=== PATIENT | female | born 1960 | race Hispanic/Latino ===

== ENCOUNTER 2016-06-23 19:54 | Inpatient (IN) | payer MEDICARE ==
[2016-06-23 23:31] LABS: Bilirubin,Urine NEG (Negative); Blood,Urine MOD (Negative); Ketones,Urine NEG (Negative); Leukocyte Esterase,Urine SM (Negative); Mucus,Urine FEW /HPF; Nitrite,Urine NEG (Negative)
[2016-06-23] MEDS ORDERED: MAGNESIUM SULFATE 2GM/50ML 50 ML IV ONE (23:34)
[2016-06-23] MEDS ORDERED: NACL 0.9% 1000 ML 1,000 ML IV ONE (23:34)
[2016-06-23] MEDS ORDERED: PROVENTIL IH ONE (23:34)
[2016-06-23] MEDS ORDERED: ATROVENT IH ONE (23:34)
--- NOTE | 2016-06-23 23:36 | Emergency Department Report ---
ED General Adult HPI - General Chief complaint: Chest Pain Stated complaint: CHEST PAIN Time Seen by Provider: 06/23/16 23:24 Source: patient, EMS, RN notes reviewed Mode of arrival: Stretcher Limitations: Other (she has history of stroke, she is a poor historian, and has a component of expressive aphasia) - History of Present Illness Initial comments: This is a 55-year-old female, previously unknown to me. Has a past medical history of COPD, and is on chronic home oxygen therapy. Also has a history of heart disease, thinks that she has a stent, her outsole molder is Dr. Wade. She is brought to the hospital by EMS for chest pain, cough, weakness. Patient complains of cough, chest pain, weakness for the past 2 days. Chest pain is central. It does not radiate to the back, arms and neck. Positive sweating/diaphoresis. Positive shortness of breath. There is no leg pain. There is no recent travel greater than 4 hours, no recent hospital admissions. Patient reports nausea and vomiting. No significant abdominal pain. Also has mild suprapubic discomfort, and urinary frequency and dysuria. Symptoms have been constant for the past few days. They're getting worse. -: Gradual, days(s) Location: chest Severity scale (0 -10): 5 Quality: aching Consistency: constant Improves with: rest Worsens with: movement Associated Symptoms: chest pain, cough, diaphoresis, fever/chills, loss of appetite, shortness of breath, weakness - Related Data Home Medications Medication Instructions Recorded Confirmed Last Taken ALPRAZolam [Xanax] 0.25 mg PO BID PRN 12/26/13 12/26/13 12/26/13 08:00 Aspirin [Baby Aspirin] 81 mg PO QDAY 12/26/13 12/26/13 12/26/13 08:00 Lisinopril [Zestril] 5 mg PO QDAY 12/26/13 12/26/13 12/26/13 08:00 Simvastatin 10 mg PO QHS 12/26/13 12/26/13 12/26/13 08:00 Previous Rx's Medication Instructions Recorded Last Taken Type ALBUTEROL Inhaler [ProAir HFA 2 puff IH QID PRN #1 inhalation 12/26/13 Unknown Rx Inhaler] HYDROcodone/APAP 5-325 [Morrow 1 each PO Q6HR PRN #20 tablet 12/26/13 Unknown Rx 5/325] predniSONE [Deltasone] 50 mg PO QDAY #5 tab 12/26/13 Unknown Rx Allergies Allergy/AdvReac Type Severity Reaction Status Date / Time carisoprodol [From Soma] Allergy Unknown Verified 12/26/13 14:41 morphine Allergy Anaphylaxis Verified 12/26/13 14:40 Quinolones Allergy Unknown Verified 12/26/13 14:41 Sulfa (Sulfonamide Allergy Unknown Verified 12/26/13 14:42 Antibiotics) ED Review of Systems ROS: Stated complaint: CHEST PAIN Other details as noted in HPI Constitutional: malaise, weakness Eyes: denies: vision change ENT: congestion Respiratory: cough, shortness of breath, SOB with exertion, SOB at rest Cardiovascular: chest pain Gastrointestinal: nausea Genitourinary: dysuria Musculoskeletal: back pain Skin: denies: lesions Neurological: weakness Psychiatric: anxiety ED Past Medical Hx - Past Medical History Previous Medical History?: Yes Hx Hypertension: Yes Hx CVA: Yes (residual right sided weakness) Hx COPD: Yes 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 4) - Surgical History Past Surgical History?: Yes Hx Open Heart Surgery: Yes Hx Cholecystectomy: Yes Hx Appendectomy: Yes Additional Surgical History: Colostomy and reversal of colostomy - Social History Smoking Status: Current Every Day Smoker Substance Use Type: None - Medications Home Medications: Home Medications Medication Instructions Recorded Confirmed Last Taken Type ALBUTEROL Inhaler [ProAir HFA 2 puff IH QID PRN #1 inhalation 12/26/13 Unknown Rx Inhaler] ALPRAZolam [Xanax] 0.25 mg PO BID PRN 12/26/13 12/26/13 12/26/13 08:00 History Aspirin [Baby Aspirin] 81 mg PO QDAY 12/26/13 12/26/13 12/26/13 08:00 History HYDROcodone/APAP 5-325 [Morrow 1 each PO Q6HR PRN #20 tablet 12/26/13 Unknown Rx 5/325] Lisinopril [Zestril] 5 mg PO QDAY 12/26/13 12/26/13 12/26/13 08:00 History Simvastatin 10 mg PO QHS 12/26/13 12/26/13 12/26/13 08:00 History predniSONE [Deltasone] 50 mg PO QDAY #5 tab 12/26/13 Unknown Rx ED Physical Exam - General Limitations: Physical Limitation General appearance: alert, in no apparent distress - Head Head exam: Present: atraumatic, normocephalic - Eye Eye exam: Present: normal appearance, EOMI. Absent: nystagmus - ENT ENT exam: Present: normal exam - Neck Neck exam: Present: normal inspection, full ROM. Absent: tenderness, meningismus - Respiratory Respiratory exam: Present: respiratory distress, wheezes, rhonchi - Cardiovascular Cardiovascular Exam: Present: normal rhythm, tachycardia, normal heart sounds. Absent: systolic murmur, diastolic murmur, rubs, gallop - GI/Abdominal GI/Abdominal exam: Present: soft, normal bowel sounds. Absent: distended, tenderness, guarding, rebound, rigid, pulsatile mass - Extremities Exam Extremities exam: Present: normal inspection, full ROM, normal capillary refill. Absent: tenderness, pedal edema, joint swelling, calf tenderness - Back Exam Back exam: Present: normal inspection, full ROM. Absent: tenderness, CVA tenderness (R), CVA tenderness (L), muscle spasm, paraspinal tenderness, vertebral tenderness - Neurological Exam Neurological exam: Present: alert, oriented X3, other (there is no facial droop. The tongue is midline. Extraocular movements are intact. 5/5 strength in 4 extremities. Sensation is intact to light touch in for 4 extremities) - Psychiatric Psychiatric exam: Present: normal affect, normal mood - Skin Skin exam: Present: warm, dry, intact, normal color. Absent: rash ED Course Vital Signs 06/23/16 06/23/16 06/23/16 22:34 22:41 22:45 Temperature 98.9 F Pulse Rate 113 H 113 H 112 H Pulse Rate [ Posterior] Respiratory 22 19 34 H Rate Respiratory Rate [Posterior ] Blood Pressure 116/62 114/58 O2 Sat by Pulse 95 96 94 Oximetry 06/23/16 06/23/16 06/23/16 23:00 23:15 23:30 Temperature Pulse Rate 114 H 114 H 115 H Pulse Rate [ Posterior] Respiratory 35 H 23 31 H Rate Respiratory Rate [Posterior ] Blood Pressure 124/61 124/61 129/58 O2 Sat by Pulse 95 95 Oximetry 06/23/16 06/24/16 06/24/16 23:45 00:01 00:02 Temperature Pulse Rate 113 H 113 H Pulse Rate [ 111 H Posterior] Respiratory 21 35 H Rate Respiratory 25 H Rate [Posterior ] Blood Pressure 129/58 129/58 O2 Sat by Pulse 96 95 Oximetry 06/24/16 06/24/16 06/24/16 00:15 00:31 00:45 Temperature Pulse Rate 118 H 104 H 105 H Pulse Rate [ Posterior] Respiratory 29 H 29 H 12 Rate Respiratory Rate [Posterior ] Blood Pressure 129/58 129/58 129/58 O2 Sat by Pulse 98 94 96 Oximetry 06/24/16 06/24/16 06/24/16 01:00 01:01 01:15 Temperature Pulse Rate 126 H 64 Pulse Rate [ 120 H Posterior] Respiratory 39 H 30 H Rate Respiratory 25 H Rate [Posterior ] Blood Pressure 129/58 129/58 O2 Sat by Pulse 95 96 Oximetry 06/24/16 06/24/16 06/24/16 01:31 01:45 02:01 Temperature Pulse Rate 121 H 118 H 117 H Pulse Rate [ Posterior] Respiratory 35 H 18 18 Rate Respiratory Rate [Posterior ] Blood Pressure 129/58 129/58 129/58 O2 Sat by Pulse 94 95 95 Oximetry 06/24/16 06/24/16 06/24/16 02:15 02:30 02:45 Temperature Pulse Rate 111 H 110 H 110 H Pulse Rate [ Posterior] Respiratory 36 H 32 H 36 H Rate Respiratory Rate [Posterior ] Blood Pressure 104/46 94/45 102/43 O2 Sat by Pulse 93 94 Oximetry 06/24/16 03:00 Temperature Pulse Rate 109 H Pulse Rate [ Posterior] Respiratory 31 H Rate Respiratory Rate [Posterior ] Blood Pressure 102/37 O2 Sat by Pulse 96 Oximetry - Reevaluation(s) Reevaluation #1: 06/24/16 00:20 Differential diagnosis: COPD exacerbation, bronchitis, pneumonia, acute coronary syndrome assessment and plan: 55-year-old female with cough, wheezing, chest pain, diaphoresis, nausea, shortness of breath, generalized weakness. Chest x-ray suggests impressive pneumonia. She is tachycardic with leukocytosis. I think acute coronary syndrome is less likely, a significant pulmonary findings on her chest x-ray. There are no pulmonary embolus or DVT risk factors, she is low risk by well's criteria. Given her numerous medical comorbidities, severe work of breathing, tachycardia, leukocytosis, I do not believe the patient is suitable for outpatient management for her probable community-acquired pneumonia. She will be loaded with 2 L of IV fluid, blood cultures will be ordered, ceftriaxone, azithromycin, albuterol, Atrovent, steroids, magnesium are ordered. Case is discussed with the Hospital physician, Dr. Austin, who accepts the patient to his service. ED Medical Decision Making - Lab Data Result diagrams: 06/23/16 23:10 06/23/16 23:10 Vital Signs 06/23/16 06/24/16 22:41 00:02 Temperature 98.9 F Pulse Rate 113 H Pulse Rate [ 111 H Posterior] Respiratory 19 Rate Respiratory 25 H Rate [Posterior ] Blood Pressure 116/62 O2 Sat by Pulse 96 Oximetry Lab Results 06/23/16 06/23/16 06/23/16 Range/Units 23:10 23:10 23:10 WBC 30.7 H (4.5-11.0) K/mm3 RBC 5.29 H (3.65-5.03) M/mm3 Hgb 15.8 H (10.1-14.3) gm/dl Hct 49.9 H (30.3-42.9) % MCV 94 (79-97) fl MCH 30 (28-32) pg MCHC 32 (30-34) % RDW 14.8 (13.2-15.2) % Plt Count 230 (140-440) K/mm3 Sodium 131 L (137-145) mmol/L Potassium 3.7 (3.6-5.0) mmol/L Chloride 89.0 L (98-107) mmol/L Carbon Dioxide 26 (22-30) mmol/L Anion Gap 20 mmol/L BUN 7 (7-17) mg/dL Creatinine 0.9 (0.7-1.2) mg/dL Estimated GFR > 60 ml/min BUN/Creatinine Ratio 7.77 % Glucose 106 H (65-100) mg/dL Calcium 8.7 (8.4-10.2) mg/dL Troponin T < 0.010 (0.00-0.029) ng/mL NT-Pro-B Natriuret Pep 262.6 (0-900) pg/mL Urine Color (Yellow) Urine Turbidity (Clear) Urine pH (5.0-7.0) Ur Specific [place] (1.003-1.030) Urine Protein (Negative) mg/dL Urine Glucose (UA) (Negative) mg/dL Urine Ketones (Negative) mg/dL Urine Blood (Negative) Urine Nitrite (Negative) Urine Bilirubin (Negative) Urine Urobilinogen (<2.0) mg/dL Ur Leukocyte Esterase (Negative) Urine WBC (Auto) (0.0-6.0) /HPF Urine RBC (Auto) (0.0-6.0) /HPF U Epithel Cells (Auto) (0-13.0) /HPF Ur Transition Epith Cell /HPF Hyaline Casts /LPF Urine Mucus /HPF 06/23/16 Range/Units Unknown WBC (4.5-11.0) K/mm3 RBC (3.65-5.03) M/mm3 Hgb (10.1-14.3) gm/dl Hct (30.3-42.9) % MCV (79-97) fl MCH (28-32) pg MCHC (30-34) % RDW (13.2-15.2) % Plt Count (140-440) K/mm3 Sodium (137-145) mmol/L Potassium (3.6-5.0) mmol/L Chloride (98-107) mmol/L Carbon Dioxide (22-30) mmol/L Anion Gap mmol/L BUN (7-17) mg/dL Creatinine (0.7-1.2) mg/dL Estimated GFR ml/min BUN/Creatinine Ratio % Glucose (65-100) mg/dL Calcium (8.4-10.2) mg/dL Troponin T (0.00-0.029) ng/mL NT-Pro-B Natriuret Pep (0-900) pg/mL Urine Color No (Yellow) Urine Turbidity Slightly-cloudy (Clear) Urine pH 6.0 (5.0-7.0) Ur Specific [place] 1.021 (1.003-1.030) Urine Protein 30 mg/dl (Negative) mg/dL Urine Glucose (UA) Neg (Negative) mg/dL Urine Ketones Neg (Negative) mg/dL Urine Blood Mod (Negative) Urine Nitrite Neg (Negative) Urine Bilirubin Neg (Negative) Urine Urobilinogen 4.0 (<2.0) mg/dL Ur Leukocyte Esterase Sm (Negative) Urine WBC (Auto) 39.0 H (0.0-6.0) /HPF Urine RBC (Auto) 28.0 (0.0-6.0) /HPF U Epithel Cells (Auto) 25.0 H (0-13.0) /HPF Ur Transition Epith Cell 4 /HPF Hyaline Casts 1 /LPF Urine Mucus Few /HPF - EKG Data 06/24/16 00:23 Sinus tachycardia, 119 bpm, QTC 430 ms, abnormal EKG, not morphologically consistent with STEMI. - Radiology Data Radiology results: image reviewed interpreted by me: Portable chest x-ray demonstrates a median sternotomy, right lower lobe/right middle lobe infiltrate, COPD. Critical care attestation.: If time is entered above; I have spent that time in minutes in the direct care of this critically ill patient, excluding procedure time. ED Disposition Clinical Impression: Pneumonia Qualifiers: Pneumonia type: due to unspecified organism Laterality: right Lung location: lower lobe of lung Qualified Code(s): J18.9 - Pneumonia, unspecified organism Disposition: OP ADMITTED IP TO THIS HOSP Is pt being admited?: Yes Does the pt Need Aspirin: No Condition: Fair
[2016-06-23 23:44] LABS: Hematocrit 49.9 % (30.3-42.9); Hemoglobin 15.8 gm/dl (10.1-14.3); Mean Corpuscular HGB Conc 32 % (30-34); Mean Corpuscular Hemoglobin 30 pg (28-32); Mean Corpuscular Volume 94 fl (79-97); Platelet Count 230 K/mm3 (140-440); Red Blood Count 5.29 M/mm3 (3.65-5.03); Red Cell Distribution Width 14.8 % (13.2-15.2)
[2016-06-23 23:45] LABS: White Blood Count 30.7 K/mm3 (4.5-11.0)
[2016-06-23 23:58] LABS: Anion Gap 20 mmol/L; BUN/Creatinine Ratio 7.77; Blood Urea Nitrogen 7 mg/dL (7-17); Calcium 8.7 mg/dL (8.4-10.2); Carbon Dioxide 26 mmol/L (22-30); Glucose 106 mg/dL (65-100); Potassium 3.7 mmol/L (3.6-5.0); Sodium 131 mmol/L (137-145)
[2016-06-24] MEDS ORDERED: ROCEPHIN/NS 1 GM/50 ML 50 ML IV ONE (00:18)
[2016-06-24] MEDS ORDERED: ZITHROMAX 500 MG in NACL 0.9% 250ML 250 ML IV ONE (00:18)
[2016-06-24] MEDS ORDERED: BABY ASPIRIN PO ONE (00:26)
[2016-06-24 00:44] LABS: INR 0.97 (0.87-1.13)
[2016-06-24] MEDS ORDERED: NACL 0.9% 1000 ML IV ONE (01:00)
--- NOTE | 2016-06-24 01:21 | Admit Criteria Form ---
Admission Criteria Documentation: PNEUMONIA, COMMUNITY ACQUIRED Clinical Indications for Admission to Inpatient Care ( Place 'X' for any and all applicable criteria): Admission is indicated for ANY ONE of the following (1)(2)(3): [ ]I. Hypoxemia indicated by ANY ONE of the following: [ ]a) Oxygen saturation less than 90% while breathing room air [ ]b) PO2 less than 60 mm Hg (8.0 kPa) while breathing room air [ ]c) Chronic lung disease with significant deterioration from baseline oxygenation [ ]II. Appropriate diagnostic testing and treatment unavailable in outpatient or recovery facility (eg,testing or infection control measures unavailable(10) [ ]III. Moderate-risk or high-risk category patients (Pneumonia Severity Index (PSI) class IV or V, or CURB-65 score of 3 or greater). [ ]IV. Outpatient treatment failure as indicated by ANY ONE of the following(9) : [ ]a) Failure to respond to antibiotic (eg, resistant organism) [ ]b) Clinically significant adverse effects from medication (eg, vomiting) [ ]c) Complications of pneumonia (eg, empyema, bacteremia) [ ]d) Significant worsening of comorbid cond necessitating inpatient care (eg, chronic heart failure) [ ]V. Intermediate-risk category patients (eg, PSI class III or CURB-65 score 2) who do not improve with initial therapy and observation. [ ]. Immunocompromised patients (eg, AIDS, chronic steroid use) at moderate or high risk based on clinical evaluation. [ ]VII. Complicated pleural effusions (eg, exudative, loculated) [ ]VIII.Hemodynamic instability [ ] IX. Altered mental status that is severe or persistent. [ ]X. Dehydration that is severe or persistent. [ ]XI. Bacteremia [X ]XII. Respiratory finding (eg. tachypnea) that do not respond to outpatient or observation care treatment Extended stay beyond goal length of stay may be needed for (20) [ ]a) Unclear diagnosis [ ]b) Pleural disease [ ]c) Severe pneumonia or treatment failure (25 [ ]d) Respiratory failure (anticipate invasive or noninvasive ventilatory support) [ ]e) Abnormal serum electrolytes (serum Na concentration less than 135 mEq/L (mmol/L) (32)(33) [ ]f) Clinically significant comorbid illness (eg, heart failure, atrial fibrillation with rapid heart rate, alcohol withdrawal, renal insufficiency)(34)(35) [ ]g) Comorbid acute exacerbation of COPD(36) [ ]h) Concomitant diagnosis of malignancy that may be associated with malnutrition, immunologic impairment, or bronchial obstruction. [ ]i) Concomitant altered mental status [ ]j) Culture-identified Gram-negative or antibiotic-resistant organism (eg, Pseudomonas, methicillin-resistant Staphylococcus aureus)(30) [ ]k) Healthcare-associated pneumonia The original [employer] content created by [employer] has been revised. The portions of the content which have been revised are identified through the use of italic text or in bold, and [facility] has neither reviewed nor approved the modified material. All other unmodified content is copyright [employer]. Please see references footnoted in the original [email or web address] edition 2016 Admission Criteria Met: Yes
--- NOTE | 2016-06-24 01:51 | History and Physical Report ---
History of Present Illness History of present illness: 55 YO Female with HTN, COPD, History of TB 50 years ago, Nicotine Dependence, Chronic Respiratory Failure on Home Oxygen presents to ED for evaluation. Pt states that she has experienced coughing, weakness followed by pain in her chest for the past 2 days. Pt states that chest pain is precipitated by her coughing spells. Pt denies fever, chills, palpitations, NVD, recent ill contacts , unintentional weight loss, night sweats, or skin rashes. Past History Past Medical History: COPD, hypertension Past Surgical History: appendectomy, cholecystectomy, bowel surgery, Other ( cardiac surgery) Social history: , smoking Family history: hypertension Medications and Allergies Allergies Allergy/AdvReac Type Severity Reaction Status Date / Time carisoprodol [From Soma] Allergy Unknown Verified 12/26/13 14:41 morphine Allergy Anaphylaxis Verified 12/26/13 14:40 Quinolones Allergy Unknown Verified 12/26/13 14:41 Sulfa (Sulfonamide Allergy Unknown Verified 12/26/13 14:42 Antibiotics) Home Medications Medication Instructions Recorded Confirmed Last Taken Type ALBUTEROL Inhaler [ProAir HFA 2 puff IH QID PRN #1 inhalation 12/26/13 06/24/16 Unknown Rx Inhaler] ALPRAZolam [Xanax] 0.25 mg PO BID PRN 12/26/13 06/24/16 12/26/13 08:00 History Aspirin [Baby Aspirin] 81 mg PO QDAY 12/26/13 06/24/16 12/26/13 08:00 History Lisinopril [Zestril] 5 mg PO QDAY 12/26/13 06/24/16 12/26/13 08:00 History Simvastatin 5 mg PO QHS 12/26/13 06/24/16 12/26/13 08:00 History Review of Systems Constitutional: weakness Exam - Constitutional Vitals: Temp Pulse Resp BP Pulse Ox 98.9 F 111 H 25 H 116/62 96 06/23/16 22:41 06/24/16 00:02 06/24/16 00:02 06/23/16 22:41 06/23/16 22:41 General appearance: Present: mild distress - EENT Eyes: Present: PERRL ENT: hearing intact, clear oral mucosa - Neck Neck: Present: supple, normal ROM - Respiratory Respiratory effort: normal Respiratory: bilateral: diminished - Cardiovascular Heart Sounds: Present: S1 & S2. Absent: rub, click - Extremities Extremities: pulses symmetrical, No edema Peripheral Pulses: within normal limits - Abdominal General gastrointestinal: Present: soft, non-tender, non-distended, normal bowel sounds Female genitourinary: Present: normal - Integumentary Integumentary: Present: clear, warm, dry - Musculoskeletal Musculoskeletal: gait normal, strength equal bilaterally - Psychiatric Psychiatric: appropriate mood/affect, intact judgment & insight - Neurologic Neurologic: CNII-XII intact, moves all extremities Results - Labs CBC & Chem 7: 06/23/16 23:10 06/23/16 23:10 Labs: Abnormal lab results 06/23/16 06/23/16 06/23/16 Range/Units 23:10 23:10 Unknown WBC 30.7 H (4.5-11.0) K/mm3 RBC 5.29 H (3.65-5.03) M/mm3 Hgb 15.8 H (10.1-14.3) gm/dl Hct 49.9 H (30.3-42.9) % Sodium 131 L (137-145) mmol/L Chloride 89.0 L (98-107) mmol/L Glucose 106 H (65-100) mg/dL Urine WBC (Auto) 39.0 H (0.0-6.0) /HPF U Epithel Cells (Auto) 25.0 H (0-13.0) /HPF Assessment and Plan - Patient Problems (1) Pneumonia Current Visit: Yes Status: Acute Qualifiers: Pneumonia type: due to unspecified organism Laterality: right Lung location: lower lobe of lung Qualified Code(s): J18.9 - Pneumonia, unspecified organism Plan to address problem: Pneumonia Protocol: IV abx, supplemental oxygen, nebs, supportive care, blood cultures (2) Sepsis Current Visit: Yes Status: Acute Plan to address problem: Sepsis protocol: IV abx, ivf, supportive care. (3) COPD (chronic obstructive pulmonary disease) Current Visit: Yes Status: Acute Plan to address problem: treat sepsis, continue abx, supportive care, pulmonary toilet, (4) HTN (hypertension) Current Visit: Yes Status: Acute Plan to address problem: monitor bp q shift, continue current therapy (5) Chronic respiratory failure Current Visit: Yes Status: Acute Plan to address problem: treat sepsis, continue abx, supplemental oxygen, nebs, pulmonary toilet. (6) DVT prophylaxis Current Visit: Yes Status: Acute
[2016-06-24] MEDS ORDERED: TYLENOL PO PRN (01:52)
[2016-06-24] MEDS ORDERED: PROAIR IH PRN (01:54)
[2016-06-24 05:24] LABS: Anisocytosis 1+; Blastocytes % (Manual) 0 %; Diff Status Complete; Eosinophils % (Manual) 0 % (0.0-4.3)
[2016-06-24] MEDS: ZOSYN/NS 4.5GM/100ML 100 ML IV SCH ×2 (06:39→12:20)
--- NOTE | 2016-06-24 07:59 | XRay Report ---
Portable chest: There is a pulmonary consolidation in the right middle lobe. The overall interstitial pattern throughout both lungs is coarse. There is a prosthetic aortic valve. Compared to prior examination in December 2013 is been no change in the overall pulmonary pattern however the consolidation is new. Impression: 1. Right middle lobe pneumonia. 2. Chronic lung and cardiac changes.
[2016-06-24] MEDS: XANAX PO PRN ×2 (08:35→21:15)
[2016-06-24] MEDS: PROVENTIL IH PRN (08:51)
[2016-06-24] MEDS: NACL 0.45% 1000 ML 1,000 ML IV SCH ×2 (09:14→22:35)
[2016-06-24] MEDS ORDERED: LEVAQUIN 750MG/150ML 150 ML IV SCH (10:00)
[2016-06-24] MEDS: DELTASONE PO SCH (10:58)
[2016-06-24] MEDS: BABY ASPIRIN PO SCH (10:58)
[2016-06-24] MEDS: ZESTRIL PO SCH (10:59)
[2016-06-24] MEDS: LASIX PO SCH (12:20)
--- NOTE | 2016-06-24 19:12 | Event Note ---
Date: 06/24/16 Patient seen and examined in the ER, leukocytosis now, continue current therapy , cultures with no growth.
[2016-06-24] MEDS: ZOCOR PO SCH (21:16)
[2016-06-24] MEDS: NORCO 5/325 PO PRN (21:20)
[2016-06-25] MEDS: ZOSYN/NS 4.5GM/100ML 100 ML IV SCH ×6 (00:35→23:55)
[2016-06-25] MEDS: NACL 0.45% 1000 ML 1,000 ML IV SCH ×2 (08:57→20:26)
[2016-06-25 08:58] LABS: Hematocrit 39.6 % (30.3-42.9); Hemoglobin 12.9 gm/dl (10.1-14.3); Mean Corpuscular HGB Conc 33 % (30-34); Mean Corpuscular Hemoglobin 30 pg (28-32); Mean Corpuscular Volume 93 fl (79-97); Platelet Count 326 K/mm3 (140-440); Red Blood Count 4.28 M/mm3 (3.65-5.03); Red Cell Distribution Width 14.4 % (13.2-15.2)
[2016-06-25 09:12] LABS: Anion Gap 18 mmol/L; Blood Urea Nitrogen 10 mg/dL (7-17); Carbon Dioxide 24 mmol/L (22-30); Chloride 100.1 mmol/L (98-107); Glucose 118 mg/dL (65-100); Potassium 3.7 mmol/L (3.6-5.0); Sodium 138 mmol/L (137-145)
[2016-06-25 09:14] LABS: White Blood Count 23.2 K/mm3 (4.5-11.0)
[2016-06-25 09:44] LABS: Anisocytosis 1+; Basophils % (Manual) 0 % (0.0-1.8); Blastocytes % (Manual) 0 %; Eosinophils % (Manual) 0 % (0.0-4.3); Poikilocytosis 1+
[2016-06-25 09:45] LABS: Burr Cells Few; Diff Status Complete; Large Platelets Few
[2016-06-25] MEDS: SPIRIVA IH SCH (10:14)
[2016-06-25] MEDS: PROVENTIL IH PRN ×2 (10:21→14:48)
[2016-06-25] MEDS: LASIX PO SCH (10:25)
[2016-06-25] MEDS: BABY ASPIRIN PO SCH (10:25)
[2016-06-25] MEDS: ZESTRIL PO SCH (10:25)
[2016-06-25] MEDS: XANAX PO PRN ×2 (10:26→20:24)
[2016-06-25] MEDS: DELTASONE PO SCH (10:26)
--- NOTE | 2016-06-25 13:47 | Progress Note ---
Assessment and Plan Assessment and plan: Patient is a 55 YO woman with a history of HTN, COPD, History of TB 50 years ago , Nicotine Dependence, Chronic Respiratory Failure on Home Oxygen presents to ED for evaluation. Pt states that she has experienced coughing, weakness followed by pain in her chest for the past 2 days. Pt states that chest pain is precipitated by her coughing spells. Pt denies fever, chills, palpitations, NVD , recent ill contacts, unintentional weight loss, night sweats, or skin rashes. (1) Right middle lobe aspiration pneumonia, present on admission: Continue IV antibiotics (2) Sepsis Current Visit: Yes Status: Acute Plan to address problem: Sepsis protocol: IV abx, ivf, supportive care. (3) COPD (chronic obstructive pulmonary disease) Current Visit: Yes Status: Acute Plan to address problem: treat sepsis, continue abx, supportive care, pulmonary toilet, (4) HTN (hypertension) Current Visit: Yes Status: Acute Plan to address problem: monitor bp q shift, continue current therapy (5) acute on Chronic hypoxic respiratory failure, present on admission Current Visit: Yes Status: Acute Plan to address problem: treat sepsis, continue abx, supplemental oxygen, nebs, pulmonary toilet. (6) DVT prophylaxis Current Visit: Yes Status: Acute History Interval history: Patient seen and examined. Follow up on shortness of breath, overnight uneventful. No cp, abdominal pain, n/v or severe headaches. Imaging, old records , testing, labs, nursing notes reviewed. Hospitalist Physical - Physical exam Narrative exam: GEN: WDWN, NAD, AWAKE, ALERT, ORIENTATED 3 HEENT: NCAT, PERRL, EOMI, OP CLEAR NECK: SUPPLE, NO THYROMEGALY, NO JVD, NO LAD CVS: RRR, NORMAL S1S2 LUNGS/CHEST: Bibasilar crackles and coarse basilar breath sounds bilaterally, NORMAL CHEST EXPANSION B, GOOD AIR ENTRY B ABD: SOFT NTND, GBS, NO REBOUND OR GUARDING EXT/SKIN: NO SIGNIFICANT EDEMA OR RASH MSK: FROM X 4 EXTREMITIES NEURO: CN 2-12 GROSSLY INTACT, NO NEW FOCAL DEFICITS PSY: CALM - Constitutional Vitals: Temp Pulse Resp BP Pulse Ox 97.7 F 92 H 20 134/75 95 06/25/16 09:14 06/25/16 10:31 06/25/16 10:31 06/25/16 10:25 06/25/16 10:15 General appearance: Absent: mild distress Results - Labs CBC & Chem 7: 06/25/16 08:25 06/25/16 08:25 Labs: Laboratory Last Values WBC 23.2 K/mm3 (4.5-11.0) H 06/25/16 08:25 RBC 4.28 M/mm3 (3.65-5.03) 06/25/16 08:25 Hgb 12.9 gm/dl (10.1-14.3) 06/25/16 08:25 Hct 39.6 % (30.3-42.9) D 06/25/16 08:25 MCV 93 fl (79-97) 06/25/16 08:25 MCH 30 pg (28-32) 06/25/16 08:25 MCHC 33 % (30-34) 06/25/16 08:25 RDW 14.4 % (13.2-15.2) 06/25/16 08:25 Plt Count 326 K/mm3 (140-440) 06/25/16 08:25 Add Manual Diff Complete 06/25/16 08:25 Total Counted 100 06/25/16 08:25 Seg Neuts % (Manual) 89.0 % (40.0-70.0) H 06/25/16 08:25 Band Neutrophils % 2.0 % 06/25/16 08:25 Lymphocytes % (Manual) 4.0 % (13.4-35.0) L 06/25/16 08:25 Reactive Lymphs % (Man) 0 % 06/25/16 08:25 Monocytes % (Manual) 5.0 % (0.0-7.3) 06/25/16 08:25 Eosinophils % (Manual) 0 % (0.0-4.3) 06/25/16 08:25 Basophils % (Manual) 0 % (0.0-1.8) 06/25/16 08:25 Metamyelocytes % 0 % 06/25/16 08:25 Myelocytes % 0 % 06/25/16 08:25 Promyelocytes % 0 % 06/25/16 08:25 Blast Cells % 0 % 06/25/16 08:25 Nucleated RBC % Not Reportable 06/25/16 08:25 Seg Neutrophils # Man 20.6 K/mm3 (1.8-7.7) H 06/25/16 08:25 Band Neutrophils # 0.5 K/mm3 06/25/16 08:25 Lymphocytes # (Manual) 0.9 K/mm3 (1.2-5.4) L 06/25/16 08:25 Abs React Lymphs (Man) 0.0 K/mm3 06/25/16 08:25 Monocytes # (Manual) 1.2 K/mm3 (0.0-0.8) H 06/25/16 08:25 Eosinophils # (Manual) 0.0 K/mm3 (0.0-0.4) 06/25/16 08:25 Basophils # (Manual) 0.0 K/mm3 (0.0-0.1) 06/25/16 08:25 Metamyelocytes # 0.0 K/mm3 06/25/16 08:25 Myelocytes # 0.0 K/mm3 06/25/16 08:25 Promyelocytes # 0.0 K/mm3 06/25/16 08:25 Blast Cells # 0.0 K/mm3 06/25/16 08:25 WBC Morphology Not Reportable 06/25/16 08:25 Hypersegmented Neuts Not Reportable 06/25/16 08:25 Hyposegmented Neuts Not Reportable 06/25/16 08:25 Hypogranular Neuts Not Reportable 06/25/16 08:25 Smudge Cells Not Reportable 06/25/16 08:25 Toxic Granulation Not Reportable 06/25/16 08:25 Toxic Vacuolation Not Reportable 06/25/16 08:25 Dohle Bodies Not Reportable 06/25/16 08:25 Pelger-Huet Anomaly Not Reportable 06/25/16 08:25 Rosa Rods Not Reportable 06/25/16 08:25 Platelet Estimate Appears normal 06/25/16 08:25 Clumped Platelets Not Reportable 06/25/16 08:25 Plt Clumps, EDTA Not Reportable 06/25/16 08:25 Large Platelets Few 06/25/16 08:25 Giant Platelets Not Reportable 06/25/16 08:25 Platelet Satelliting Not Reportable 06/25/16 08:25 Plt Morphology Comment Not Reportable 06/25/16 08:25 RBC Morphology Not Reportable 06/25/16 08:25 Dimorphic RBCs Not Reportable 06/25/16 08:25 Polychromasia Not Reportable 06/25/16 08:25 Hypochromasia Not Reportable 06/25/16 08:25 Poikilocytosis 1+ 06/25/16 08:25 Anisocytosis 1+ 06/25/16 08:25 Microcytosis Not Reportable 06/25/16 08:25 Macrocytosis Not Reportable 06/25/16 08:25 Spherocytes Not Reportable 06/25/16 08:25 Pappenheimer Bodies Not Reportable 06/25/16 08:25 Sickle Cells Not Reportable 06/25/16 08:25 Target Cells Not Reportable 06/25/16 08:25 Tear Drop Cells Not Reportable 06/25/16 08:25 Ovalocytes Not Reportable 06/25/16 08:25 Helmet Cells Not Reportable 06/25/16 08:25 May-[place] Bodies Not Reportable 06/25/16 08:25 [place] Rings Not Reportable 06/25/16 08:25 Danitza Cells Few 06/25/16 08:25 Bite Cells Not Reportable 06/25/16 08:25 Crenated Cell Not Reportable 06/25/16 08:25 Elliptocytes Not Reportable 06/25/16 08:25 Acanthocytes (Spur) Not Reportable 06/25/16 08:25 Rouleaux Not Reportable 06/25/16 08:25 Hemoglobin C Crystals Not Reportable 06/25/16 08:25 Schistocytes Not Reportable 06/25/16 08:25 Malaria parasites Not Reportable 06/25/16 08:25 Da Bodies Not Reportable 06/25/16 08:25 Hem Pathologist Commnt No 06/25/16 08:25 PT 12.8 Sec. (12.2-14.9) 06/24/16 00:14 INR 0.97 (0.87-1.13) 06/24/16 00:14 Sodium 138 mmol/L (137-145) D 06/25/16 08:25 Potassium 3.7 mmol/L (3.6-5.0) 06/25/16 08:25 Chloride 100.1 mmol/L (98-107) 06/25/16 08:25 Carbon Dioxide 24 mmol/L (22-30) 06/25/16 08:25 Anion Gap 18 mmol/L 06/25/16 08:25 BUN 10 mg/dL (7-17) 06/25/16 08:25 Creatinine 0.8 mg/dL (0.7-1.2) 06/25/16 08:25 Estimated GFR > 60 ml/min 06/25/16 08:25 BUN/Creatinine Ratio 12.50 % 06/25/16 08:25 Glucose 118 mg/dL (65-100) H 06/25/16 08:25 Lactic Acid 1.1 mmol/L (0.7-2.0) 06/24/16 10:31 Calcium 8.0 mg/dL (8.4-10.2) L 06/25/16 08:25 Troponin T < 0.010 ng/mL (0.00-0.029) 06/24/16 07:36 NT-Pro-B Natriuret Pep 262.6 pg/mL (0-900) 06/23/16 23:10 Urine Color No (Yellow) 06/23/16 Unknown Urine Turbidity Slightly-cloudy (Clear) 06/23/16 Unknown Urine pH 6.0 (5.0-7.0) 06/23/16 Unknown Ur Specific [place] 1.021 (1.003-1.030) 06/23/16 Unknown Urine Protein 30 mg/dl mg/dL (Negative) 06/23/16 Unknown Urine Glucose (UA) Neg mg/dL (Negative) 06/23/16 Unknown Urine Ketones Neg mg/dL (Negative) 06/23/16 Unknown Urine Blood Mod (Negative) 06/23/16 Unknown Urine Nitrite Neg (Negative) 06/23/16 Unknown Urine Bilirubin Neg (Negative) 06/23/16 Unknown Urine Urobilinogen 4.0 mg/dL (<2.0) 06/23/16 Unknown Ur Leukocyte Esterase Sm (Negative) 06/23/16 Unknown Urine WBC (Auto) 39.0 /HPF (0.0-6.0) H 06/23/16 Unknown Urine RBC (Auto) 28.0 /HPF (0.0-6.0) 06/23/16 Unknown U Epithel Cells (Auto) 25.0 /HPF (0-13.0) H 06/23/16 Unknown Ur Transition Epith Cell 4 /HPF 01/04/17 Unknown Hyaline Casts 1 /LPF 06/23/16 Unknown Urine Mucus Few /HPF 06/23/16 Unknown - Imaging and Cardiology Chest x-ray: report reviewed
[2016-06-25] MEDS: NORCO 5/325 PO PRN ×2 (15:14→22:00)
[2016-06-25] MEDS: ZOCOR PO SCH (23:57)
[2016-06-26] MEDS: NORCO 5/325 PO PRN (05:02)
[2016-06-26] MEDS: XANAX PO PRN ×3 (05:02→21:39)
[2016-06-26] MEDS: ZOSYN/NS 4.5GM/100ML 100 ML IV SCH ×3 (05:03→19:14)
[2016-06-26] MEDS: NACL 0.45% 1000 ML 1,000 ML IV SCH (05:08)
[2016-06-26] MEDS: PROVENTIL IH PRN (08:10)
[2016-06-26] MEDS: SPIRIVA IH SCH (10:32)
[2016-06-26] MEDS ORDERED: AMBIEN PO PRN (10:47)
--- NOTE | 2016-06-26 11:57 | Progress Note ---
Assessment and Plan Assessment and plan: Patient is a 55 YO woman with a history of HTN, COPD, History of TB 50 years ago , Nicotine Dependence, Chronic Respiratory Failure on Home Oxygen presents to ED for evaluation. Pt states that she has experienced coughing, weakness followed by pain in her chest for the past 2 days. Pt states that chest pain is precipitated by her coughing spells. Pt denies fever, chills, palpitations, NVD , recent ill contacts, unintentional weight loss, night sweats, or skin rashes. (1) Right middle lobe aspiration pneumonia, present on admission: Continue IV antibiotics (2) Sepsis Current Visit: Yes Status: Acute Plan to address problem: Sepsis protocol: IV abx, ivf, supportive care. (3) COPD (chronic obstructive pulmonary disease) Current Visit: Yes Status: Acute Plan to address problem: treat sepsis, continue abx, supportive care, pulmonary toilet, (4) HTN (hypertension) Current Visit: Yes Status: Acute Plan to address problem: monitor bp q shift, continue current therapy (5) acute on Chronic hypoxic respiratory failure, present on admission Current Visit: Yes Status: Acute Plan to address problem: treat sepsis, continue abx, supplemental oxygen, nebs, pulmonary toilet. (6) DVT prophylaxis Current Visit: Yes Status: Acute New issue: Anxiety attack, start home Xanax, DC IV fluids New issue: Insomnia, start home Ambien History Interval history: Patient seen and examined. Follow up on shortness of breath, overnight uneventful. No cp, abdominal pain, n/v or severe headaches. Imaging, old records , testing, labs, nursing notes reviewed. Patient complains of anxiety attack. She states she's on 1 mg Xanax and 9 AM 4 PM and at bedtime. She also takes Ambien. She's been on these medications for 15 years and wants to be started. Hospitalist Physical - Physical exam Narrative exam: GEN: WDWN, NAD, AWAKE, ALERT, ORIENTATED 3 HEENT: NCAT, PERRL, EOMI, OP CLEAR NECK: SUPPLE, NO THYROMEGALY, NO JVD, NO LAD CVS: RRR, NORMAL S1S2 LUNGS/CHEST: Bibasilar crackles and coarse basilar breath sounds bilaterally, NORMAL CHEST EXPANSION B, GOOD AIR ENTRY B ABD: SOFT NTND, GBS, NO REBOUND OR GUARDING EXT/SKIN: NO SIGNIFICANT EDEMA OR RASH MSK: FROM X 4 EXTREMITIES NEURO: CN 2-12 GROSSLY INTACT, NO NEW FOCAL DEFICITS PSY: Anxiety - Constitutional Vitals: Temp Pulse Resp BP Pulse Ox 98.3 F 97 H 18 124/68 96 06/26/16 08:00 06/26/16 10:33 06/26/16 10:33 06/26/16 08:00 06/26/16 08:12 General appearance: Absent: mild distress Results - Labs CBC & Chem 7: 06/25/16 08:25 06/25/16 08:25 Labs: Laboratory Last Values WBC 23.2 K/mm3 (4.5-11.0) H 06/25/16 08:25 RBC 4.28 M/mm3 (3.65-5.03) 06/25/16 08:25 Hgb 12.9 gm/dl (10.1-14.3) 06/25/16 08:25 Hct 39.6 % (30.3-42.9) D 06/25/16 08:25 MCV 93 fl (79-97) 06/25/16 08:25 MCH 30 pg (28-32) 06/25/16 08:25 MCHC 33 % (30-34) 06/25/16 08:25 RDW 14.4 % (13.2-15.2) 06/25/16 08:25 Plt Count 326 K/mm3 (140-440) 06/25/16 08:25 Add Manual Diff Complete 06/25/16 08:25 Total Counted 100 06/25/16 08:25 Seg Neuts % (Manual) 89.0 % (40.0-70.0) H 06/25/16 08:25 Band Neutrophils % 2.0 % 06/25/16 08:25 Lymphocytes % (Manual) 4.0 % (13.4-35.0) L 06/25/16 08:25 Reactive Lymphs % (Man) 0 % 06/25/16 08:25 Monocytes % (Manual) 5.0 % (0.0-7.3) 06/25/16 08:25 Eosinophils % (Manual) 0 % (0.0-4.3) 06/25/16 08:25 Basophils % (Manual) 0 % (0.0-1.8) 06/25/16 08:25 Metamyelocytes % 0 % 06/25/16 08:25 Myelocytes % 0 % 06/25/16 08:25 Promyelocytes % 0 % 06/25/16 08:25 Blast Cells % 0 % 06/25/16 08:25 Nucleated RBC % Not Reportable 06/25/16 08:25 Seg Neutrophils # Man 20.6 K/mm3 (1.8-7.7) H 06/25/16 08:25 Band Neutrophils # 0.5 K/mm3 06/25/16 08:25 Lymphocytes # (Manual) 0.9 K/mm3 (1.2-5.4) L 06/25/16 08:25 Abs React Lymphs (Man) 0.0 K/mm3 06/25/16 08:25 Monocytes # (Manual) 1.2 K/mm3 (0.0-0.8) H 06/25/16 08:25 Eosinophils # (Manual) 0.0 K/mm3 (0.0-0.4) 06/25/16 08:25 Basophils # (Manual) 0.0 K/mm3 (0.0-0.1) 06/25/16 08:25 Metamyelocytes # 0.0 K/mm3 06/25/16 08:25 Myelocytes # 0.0 K/mm3 06/25/16 08:25 Promyelocytes # 0.0 K/mm3 06/25/16 08:25 Blast Cells # 0.0 K/mm3 06/25/16 08:25 WBC Morphology Not Reportable 06/25/16 08:25 Hypersegmented Neuts Not Reportable 06/25/16 08:25 Hyposegmented Neuts Not Reportable 06/25/16 08:25 Hypogranular Neuts Not Reportable 06/25/16 08:25 Smudge Cells Not Reportable 06/25/16 08:25 Toxic Granulation Not Reportable 06/25/16 08:25 Toxic Vacuolation Not Reportable 06/25/16 08:25 Dohle Bodies Not Reportable 06/25/16 08:25 Pelger-Huet Anomaly Not Reportable 06/25/16 08:25 Rosa Rods Not Reportable 06/25/16 08:25 Platelet Estimate Appears normal 06/25/16 08:25 Clumped Platelets Not Reportable 06/25/16 08:25 Plt Clumps, EDTA Not Reportable 06/25/16 08:25 Large Platelets Few 06/25/16 08:25 Giant Platelets Not Reportable 06/25/16 08:25 Platelet Satelliting Not Reportable 06/25/16 08:25 Plt Morphology Comment Not Reportable 06/25/16 08:25 RBC Morphology Not Reportable 06/25/16 08:25 Dimorphic RBCs Not Reportable 06/25/16 08:25 Polychromasia Not Reportable 06/25/16 08:25 Hypochromasia Not Reportable 06/25/16 08:25 Poikilocytosis 1+ 06/25/16 08:25 Anisocytosis 1+ 06/25/16 08:25 Microcytosis Not Reportable 06/25/16 08:25 Macrocytosis Not Reportable 06/25/16 08:25 Spherocytes Not Reportable 06/25/16 08:25 Pappenheimer Bodies Not Reportable 06/25/16 08:25 Sickle Cells Not Reportable 06/25/16 08:25 Target Cells Not Reportable 06/25/16 08:25 Tear Drop Cells Not Reportable 06/25/16 08:25 Ovalocytes Not Reportable 06/25/16 08:25 Helmet Cells Not Reportable 06/25/16 08:25 [place] Bodies Not Reportable 06/25/16 08:25 [place] Rings Not Reportable 06/25/16 08:25 Danitza Cells Few 06/25/16 08:25 Bite Cells Not Reportable 06/25/16 08:25 Crenated Cell Not Reportable 06/25/16 08:25 Elliptocytes Not Reportable 06/25/16 08:25 Acanthocytes (Spur) Not Reportable 06/25/16 08:25 Rouleaux Not Reportable 06/25/16 08:25 Hemoglobin C Crystals Not Reportable 06/25/16 08:25 Schistocytes Not Reportable 06/25/16 08:25 Malaria parasites Not Reportable 06/25/16 08:25 Da Bodies Not Reportable 06/25/16 08:25 Hem Pathologist Commnt No 06/25/16 08:25 PT 12.8 Sec. (12.2-14.9) 06/24/16 00:14 INR 0.97 (0.87-1.13) 06/24/16 00:14 Sodium 138 mmol/L (137-145) D 06/25/16 08:25 Potassium 3.7 mmol/L (3.6-5.0) 06/25/16 08:25 Chloride 100.1 mmol/L (98-107) 06/25/16 08:25 Carbon Dioxide 24 mmol/L (22-30) 06/25/16 08:25 Anion Gap 18 mmol/L 06/25/16 08:25 BUN 10 mg/dL (7-17) 06/25/16 08:25 Creatinine 0.8 mg/dL (0.7-1.2) 06/25/16 08:25 Estimated GFR > 60 ml/min 06/25/16 08:25 BUN/Creatinine Ratio 12.50 % 06/25/16 08:25 Glucose 118 mg/dL (65-100) H 06/25/16 08:25 Lactic Acid 1.1 mmol/L (0.7-2.0) 06/24/16 10:31 Calcium 8.0 mg/dL (8.4-10.2) L 06/25/16 08:25 Troponin T < 0.010 ng/mL (0.00-0.029) 06/24/16 07:36 NT-Pro-B Natriuret Pep 262.6 pg/mL (0-900) 06/23/16 23:10 Urine Color No (Yellow) 06/23/16 Unknown Urine Turbidity Slightly-cloudy (Clear) 06/23/16 Unknown Urine pH 6.0 (5.0-7.0) 06/23/16 Unknown Ur Specific [place] 1.021 (1.003-1.030) 06/23/16 Unknown Urine Protein 30 mg/dl mg/dL (Negative) 06/23/16 Unknown Urine Glucose (UA) Neg mg/dL (Negative) 06/23/16 Unknown Urine Ketones Neg mg/dL (Negative) 06/23/16 Unknown Urine Blood Mod (Negative) 06/23/16 Unknown Urine Nitrite Neg (Negative) 06/23/16 Unknown Urine Bilirubin Neg (Negative) 06/23/16 Unknown Urine Urobilinogen 4.0 mg/dL (<2.0) 06/23/16 Unknown Ur Leukocyte Esterase Sm (Negative) 06/23/16 Unknown Urine WBC (Auto) 39.0 /HPF (0.0-6.0) H 06/23/16 Unknown Urine RBC (Auto) 28.0 /HPF (0.0-6.0) 06/23/16 Unknown U Epithel Cells (Auto) 25.0 /HPF (0-13.0) H 06/23/16 Unknown Ur Transition Epith Cell 4 /HPF 06/23/16 Unknown Hyaline Casts 1 /LPF 06/23/16 Unknown Urine Mucus Few /HPF 06/23/16 Unknown
[2016-06-26] MEDS: ZESTRIL PO SCH (12:08)
[2016-06-26] MEDS: BABY ASPIRIN PO SCH (12:08)
[2016-06-26] MEDS: DELTASONE PO SCH (12:09)
[2016-06-26] MEDS: LASIX PO SCH (12:09)
[2016-06-26] MEDS: DUONEB 0.5 MG-3 MG/3 ML SOLN IH SCH ×2 (13:38→19:25)
[2016-06-26] MEDS: ZOCOR PO SCH (21:39)
[2016-06-27] MEDS: ZOSYN/NS 4.5GM/100ML 100 ML IV SCH ×3 (01:45→11:13)
[2016-06-27 06:26] LABS: Hematocrit 40.5 % (30.3-42.9); Hemoglobin 12.9 gm/dl (10.1-14.3); Mean Corpuscular HGB Conc 32 % (30-34); Mean Corpuscular Hemoglobin 30 pg (28-32); Mean Corpuscular Volume 94 fl (79-97); Platelet Count 371 K/mm3 (140-440); Red Blood Count 4.33 M/mm3 (3.65-5.03); Red Cell Distribution Width 14.8 % (13.2-15.2); White Blood Count 18.4 K/mm3 (4.5-11.0)
[2016-06-27 06:44] LABS: Anion Gap 18 mmol/L; BUN/Creatinine Ratio 14.28; Blood Urea Nitrogen 10 mg/dL (7-17); Carbon Dioxide 26 mmol/L (22-30); Chloride 101.2 mmol/L (98-107); Glucose 98 mg/dL (65-100); Potassium 4.1 mmol/L (3.6-5.0); Sodium 141 mmol/L (137-145)
[2016-06-27] MEDS: DUONEB 0.5 MG-3 MG/3 ML SOLN IH SCH ×2 (07:14→13:15)
[2016-06-27 08:37] VITALS: BP 118/72
[2016-06-27] MEDS: XANAX PO PRN (08:56)
[2016-06-27] MEDS: BABY ASPIRIN PO SCH (09:02)
[2016-06-27] MEDS: ZESTRIL PO SCH (09:03)
[2016-06-27] MEDS: DELTASONE PO SCH (09:04)
[2016-06-27] MEDS: LASIX PO SCH (09:04)
[2016-06-27] MEDS: PROVENTIL IH PRN (11:08)
--- NOTE | 2016-06-27 11:38 | Discharge Summary ---
Providers - Providers Date of Admission: 06/24/16 01:52 Date of discharge: 06/27/16 Attending physician: ALENA ROGERS 06/27/16 10:22 Consult to Case Management [CONS] Routine Services Needed at Discharge: Other Notified:: COPY LEFT FOR CM Comment:: aldo luo Primary care physician: HAND STAPLER Hospitalization Condition: Stable Hospital course: Patient is a 55 YO woman with a history of HTN, COPD, History of TB 50 years ago , Nicotine Dependence, Chronic Respiratory Failure on Home Oxygen presents to ED for evaluation. Pt states that she has experienced coughing, weakness followed by pain in her chest for the past 2 days. Pt states that chest pain is precipitated by her coughing spells. Pt denies fever, chills, palpitations, NVD , recent ill contacts, unintentional weight loss, night sweats, or skin rashes. (1) Right middle lobe aspiration pneumonia, present on admission: (2) Sepsis Current Visit: Yes Status: Acute Plan to address problem: Sepsis protocol: IV abx, ivf, supportive care. (3) COPD (chronic obstructive pulmonary disease) Current Visit: Yes Status: Acute Plan to address problem: treat sepsis, continue abx, supportive care, pulmonary toilet, (4) HTN (hypertension) Current Visit: Yes Status: Acute Plan to address problem: monitor bp q shift, continue current therapy (5) acute on Chronic hypoxic respiratory failure, present on admission Current Visit: Yes Status: Acute Plan to address problem: treat sepsis, continue abx, supplemental oxygen, nebs, pulmonary toilet. (6) DVT prophylaxis Current Visit: Yes Status: Acute New issue: Anxiety attack, start home Xanax, DC IV fluids New issue: Insomnia, start home Ambien Home Time of discharge 38 minutes Disposition: DISCHARGED TO HOME OR SELFCARE Core Measure Documentation - Palliative Care Palliative Care/ Comfort Measures: Not Applicable - Core Measures Any of the following diagnoses?: none - VTE Discharge Requirements Deep Vein Thrombosis/Pulmonary Embolism Present on Admission: No Has pt received <5 days of overlap therapy or INR<2.0: No Anticoagulant overlap therapy prescribed at discharge: No Contraindication No Overlap Therapy order at DC: Not Indicated Exam - Physical Exam Narrative exam: GEN: WDWN, NAD, AWAKE, ALERT, ORIENTATED 3 HEENT: NCAT, PERRL, EOMI, OP CLEAR NECK: SUPPLE, NO THYROMEGALY, NO JVD, NO LAD CVS: RRR, NORMAL S1S2 LUNGS/CHEST: Bibasilar crackles and coarse basilar breath sounds bilaterally, NORMAL CHEST EXPANSION B, GOOD AIR ENTRY B ABD: SOFT NTND, GBS, NO REBOUND OR GUARDING EXT/SKIN: NO SIGNIFICANT EDEMA OR RASH MSK: FROM X 4 EXTREMITIES NEURO: CN 2-12 GROSSLY INTACT, NO NEW FOCAL DEFICITS PSY: Anxiety - Constitutional Vitals: Temp Pulse Resp BP Pulse Ox 98.4 F 90 20 118/72 95 06/27/16 08:00 06/27/16 11:18 06/27/16 11:18 06/27/16 09:03 06/27/16 08:00 Plan Activity: advance as tolerated (no strenous activites until cleared by PCP. ), up only with assistance, fall precautions Diet: low salt Follow up with: PRIMARY CARE,MD [Primary Care Provider] - 3-5 Days Prescriptions: Zolpidem [Ambien] 5 mg PO QHS PRN #30 tablet PRN Reason: Sleep Amoxicillin/K Clav Tab [Augmentin 875 mg] 1 tab PO Q12HR #14 tab Furosemide [Lasix TAB] 20 mg PO QDAY #30 tablet HYDROcodone/APAP 5-325 [[place] 5-325 mg TAB] 1 each PO Q6H PRN #30 tablet PRN Reason: Pain ALPRAZolam [Xanax TAB] 1 mg PO Q8H PRN #90 tablet PRN Reason: Anxiety Ipratropium/Albuterol Sulfate [Duoneb 0.5 mg-3 mg/3 ml Soln] 1 ampul IH TIDRT # 30 ampul.neb ALBUTEROL NEB's [Proventil 0.083% NEBS] 2.5 mg IH QIDRT PRN #30 nebu PRN Reason: Shortness Of Breath
== END 2016-06-27 15:16 | disposition home or self-care (01) | DRG 871 ==
LOC: ED 19:54 → 3A 06-24 01:52
PROVIDERS: ADMIT Internal Medicine; ATTEND Internal Medicine
DX: A41.9 Sepsis, unspecified organism (principal); J69.0 Pneumonitis due to inhalation of food and vomit; J96.21 Acute and chronic respiratory failure with hypoxia; J44.0 Chronic obstructive pulmonary disease with (acute) lower respiratory infection; I10 Essential (primary) hypertension; F17.210 Nicotine dependence, cigarettes, uncomplicated; J44.9 Chronic obstructive pulmonary disease, unspecified; Z99.81 Dependence on supplemental oxygen; Z88.8 Allergy status to other drugs, medicaments and biological substances; Z79.899 Other long term (current) drug therapy; Z79.82 Long term (current) use of aspirin; Z86.73 Personal history of transient ischemic attack (TIA), and cerebral infarction without residual deficits; Z86.11 Personal history of tuberculosis; Z90.49 Acquired absence of other specified parts of digestive tract; Z93.3 Colostomy status; Z98.890 Other specified postprocedural states; Z95.1 Presence of aortocoronary bypass graft; Z82.49 Family history of ischemic heart disease and other diseases of the circulatory system; Z88.2 Allergy status to sulfonamides; Z88.5 Allergy status to narcotic agent
CPT/HCPCS: 36415; 71010; 80048; 81001; 82140; 83880; 84484; 85007; 85025; 85027; 85610; 87040; 93005; 93010; 94640; 94760; 96365; 96368; 96375; J0456; J0696; J2543; J2930; J3475; J7030; J7050; J7512

== ENCOUNTER 2016-07-29 17:59 | Emergency (ER) | payer MEDICARE ==
[2016-07-29 18:17] VITALS: BP 124/90
[2016-07-29 20:19] LABS: Basophils % (Auto) 0.8 % (0.0-1.8); Eosinophils % (Auto) 0.7 % (0.0-4.3); Hematocrit 43.2 % (30.3-42.9); Hemoglobin 14.2 gm/dl (10.1-14.3); Mean Corpuscular HGB Conc 33 % (30-34); Mean Corpuscular Hemoglobin 30 pg (28-32); Mean Corpuscular Volume 91 fl (79-97); Platelet Count 321 K/mm3 (140-440); Red Blood Count 4.77 M/mm3 (3.65-5.03); Red Cell Distribution Width 14.6 % (13.2-15.2); White Blood Count 14.1 K/mm3 (4.5-11.0)
[2016-07-29 20:31] LABS: Anion Gap 23 mmol/L; BUN/Creatinine Ratio 13.33; Blood Urea Nitrogen 12 mg/dL (7-17); Carbon Dioxide 25 mmol/L (22-30); Chloride 96.3 mmol/L (98-107); Glucose 95 mg/dL (65-100); Potassium 3.7 mmol/L (3.6-5.0); Sodium 141 mmol/L (137-145)
--- NOTE | 2016-07-30 10:32 | XRay Report ---
CHEST 2 VIEWS: Compared to 06/24/16. HISTORY: Shortness of breath. FINDINGS: Normal cardiomediastinal silhouette. Trachea is midline. No consolidation, pneumothorax or pleural effusion. IMPRESSION: No definite acute cardiopulmonary findings.
--- NOTE | 2016-07-30 17:56 | ED Elopement Review ---
ED Pt Elopement review - Results review Lab results: Laboratory Tests 07/29/16 07/29/16 19:41 19:41 WBC 14.1 H RBC 4.77 Hgb 14.2 Hct 43.2 H MCV 91 MCH 30 MCHC 33 RDW 14.6 Plt Count 321 Lymph % (Auto) 17.4 [place] % (Auto) 5.6 Eos % (Auto) 0.7 Baso % (Auto) 0.8 Lymph # 2.5 [place] # 0.8 Eos # 0.1 Baso # 0.1 Seg Neutrophils % 75.5 H Seg Neutrophils # 10.7 H Sodium 141 Potassium 3.7 Chloride 96.3 L Carbon Dioxide 25 Anion Gap 23 BUN 12 Creatinine 0.9 Estimated GFR > 60 BUN/Creatinine Ratio 13.33 Glucose 95 Calcium 9.0 Troponin T < 0.010 - Call Back decision Pt Call Back Decision: No action required
== END 2016-07-29 21:45 | disposition left against medical advice (07) ==
LOC: ED 17:59
DX: R06.00 Dyspnea, unspecified (principal); M79.1 Myalgia; Z53.21 Procedure and treatment not carried out due to patient leaving prior to being seen by health care provider
CPT/HCPCS: 36415; 71020; 80048; 84484; 85025; 93005; 93010